=== PATIENT | male | born 1975 | race Caucasian/White ===

== ENCOUNTER 2018-04-21 09:59 | Inpatient (IN) | payer BC ==
[2018-04-21] MEDS ORDERED: DIPRIVAN 200 MG/20 ML IV ONE (10:53)
[2018-04-21] MEDS ORDERED: Quelicin Fliptop 200 MG/10 ML IV ONE (10:53)
[2018-04-21] MEDS ORDERED: Zofran 4 MG/2 ML VIAL IV ONE (10:53)
[2018-04-21] MEDS ORDERED: Zemuron 100 MG/10 ML IV ONE (10:53)
[2018-04-21] MEDS ORDERED: BRIDION 200MG/2ML IV ONE (10:53)
[2018-04-21] MEDS ORDERED: Dextrose 5% -0.45 NaCl 1000 ML 1,000 ML IV SCH (11:15)
[2018-04-21 11:22] LABS: AMYLASE 71 U/L (30-110); LIPASE 110 U/L (23-300)
[2018-04-21] MEDS ORDERED: Pepcid 20 MG VIAL IV ONE (11:39)
[2018-04-21 13:30] LABS: Appearance CLEAR (CLEAR); Bacteria RARE /HPF (NEGATIVE); Bilirubin NEGATIVE (NEGATIVE); Blood SMALL Ery/ul (0-5); Glucose NEGATIVE (NEGATIVE); Ketones NEGATIVE (NEGATIVE); Leukocyte Esterase NEGATIVE (NEGATIVE); Nitrite NEGATIVE (NEGATIVE); Protein,Urine Dip NEGATIVE (Negative); Specific Gravity 1.019 (1.005-1.025); Urobilinogen NEGATIVE mg/dL (0-1)
[2018-04-21 13:31] LABS: WBC NONE SEEN /HPF (0-5)
[2018-04-21] MEDS ORDERED: Lactated Ringers 1,000 ML IV SCH (13:45)
[2018-04-21] MEDS ORDERED: Lactated Ringers 1,000 ML IV ONE (13:51)
[2018-04-21] MEDS ORDERED: Sensorcaine 0.25% 10 ML ONE (13:51)
[2018-04-21] MEDS ORDERED: MEFOXIN 2 GM PREMIX** 2 GM/50 ML ML IV SCH (14:00)
[2018-04-21] MEDS ORDERED: MORPHINE SULFATE 10 MG/ML IV ONE (14:00)
[2018-04-21] MEDS ORDERED: SUBLIMAZE 250 MCG/5 ML IV ONE (14:00)
[2018-04-21] MEDS ORDERED: Versed 2 MG/2 ML Injection IV ONE (14:00)
[2018-04-21] MEDS ORDERED: Valium 5 MG PO ONE (15:01)
--- NOTE | 2018-04-21 15:57 | PCM.SSS ---
History of Present Illness - Chief Complaint Chief Complaint: Appendicitis History of Present Illness: is a 42 year old male pt of Dr. Monae with anxiety and HTN who was admitted today with appendicitis. He had been to see Dr. Monae on Apr 15 c/o having had vomiting, diarrhea, and RLQ pain about a week and a half prior to that. He had some lingering RLQ pain so Dr. Monae ordered labs and a CT scan of the abdomen/pelvis. The CT scan was not done until today and it was concerning for appendicitis. Dr. Monaco called me, as I was fiction writer for Dr. Monae , and we contacted the pt to come in. Dr. Hernandez is aware and plans to do an appendectomy at about 5 pm. today. The patient last ate at 9:30 a.m. He states he's not having any abdominal pain currently. - Review of Systems Constitutional: Fever (few weeks ago), Chills (few weeks ago) Abdominal/Gastrointestinal: Abdominal Pain (no complaint currently), Vomiting ( few weeks ago, resolved), Diarrhea (few weeks ago, resolved) Psychological: Anxiety, No Depression, No Suicidal Ideations Medications & Allergies Home Medications: Home Medication List Alprazolam 0.5 mg [xanAX 0.5 MG] 0.5 mg PO BIDPRN PRN 04/21/18 [History Confirmed 04/21/18] Lisinopril/Hydrochlorothiazide [Lisinopril-Hctz 20-12.5 mg Tab] 2 tab PO HS [History Confirmed 04/21/18] Allergies/Adverse Reactions: Allergies Allergy/AdvReac Type Severity Reaction Status Date / Time No Known Drug Allergies Allergy Unverified 01/30/15 22:34 - Past Medical History Past Medical History: Yes Neurological History: No Pertinent History ENT History: No Pertinent History Cardiac History: Hypertension Respiratory History: No Pertinent History Endocrine Medical History: No Pertinent History Musculoskelatal History: No Pertinent History GI Medical History: Irritable Bowel History: No Pertinent History Pyscho-Social History: Anxiety, Panic Disorder Male Reproductive Disorders: No Pertinent History - Past Surgical History Past Surgical History: Yes Neuro Surgical History: No Pertinent History Cardiac History: No Pertinent History Respiratory Surgery: No Pertinent History GI Surgical History: No Pertinent History Genitourinary Surgical Hx: No Pertinent History Musculskeletal Surgical Hx: No Pertinent History Male Surgical History: No Pertinent History Other Surgical History: tonsillectomy - Social History Smoking Status: Never smoker Exposure to second hand smoke: No Alcohol: Rarely Drug Use: none - Physical Exam Vital Signs: Vital Signs - 24 hr Temp Pulse Resp BP Pulse Ox 04/21/18 13:38 98.5 F 111 H 16 134/79 97 04/21/18 12:14 98.5 F 111 H 16 134/79 97 General Appearance: no apparent distress, alert Neurologic Exam: oriented x 3, cooperative Eye Exam: eyes nml inspection Ears, Nose, Throat Exam: moist mucous membranes Neck Exam: normal inspection, non-tender, supple, No lymphadenopathy Respiratory Exam: normal breath sounds, lungs clear, No crackles/rales, No rhonchi, No wheezing Cardiovascular Exam: regular rate/rhythm, normal heart sounds, No murmur Gastrointestinal/Abdomen Exam: soft, normal bowel sounds, tenderness (RLQ), No distention, No mass, No guarding, No rebound Extremity Exam: normal inspection, No pedal edema, No swelling Skin Exam: normal color, warm, dry, No rash Results - Labs Lab/Micro Results: Lab Results-Last 24 Hours 04/21/18 04/21/18 Range/Units 07:55 13:00 Amylase 71 (30-110) U/L Lipase 110 (23-300) U/L Urine Color STRAW (YELLOW) Urine Appearance CLEAR (CLEAR) Urine pH 7.0 (5-6) Ur Specific [place] 1.019 (1.005-1.025) Urine Protein NEGATIVE (Negative) Urine Ketones NEGATIVE (NEGATIVE) Urine Blood SMALL (0-5) Felix/ul Urine Nitrite NEGATIVE (NEGATIVE) Urine Bilirubin NEGATIVE (NEGATIVE) Urine Urobilinogen NEGATIVE (0-1) mg/dL Ur Leukocyte Esterase NEGATIVE (NEGATIVE) Urine WBC (Auto) NONE SEEN (0-5) /HPF Urine RBC (Auto) 6-10 (0-2) /HPF U Epithel Cells (Auto) NONE (FEW) /HPF Urine Bacteria (Auto) RARE (NEGATIVE) /HPF Urine Culture Reflexed NO (NO) Urine Glucose NEGATIVE (NEGATIVE) mg/dL Assessment/Plan (1) Acute appendicitis Current Visit: No Status: Acute Qualifiers: Acute appendicitis type: unspecified acute appendicitis type Qualified Code (s): K35.80 - Unspecified acute appendicitis Assessment & Plan: WBC actually normal at this point, but CT scan is concerning and he is tender on exam. Dr. Hernandez consulted, thank you . Code(s): K35.80 - UNSPECIFIED ACUTE APPENDICITIS Hospital Summary - Hospital Course Hospital Course: Pt admitted for acute appendicitis - although he is not currently having abdominal pain, his CT abd/pelvis is concerning for appendicitis and his RLQ is tender to palpation. I anticipate that Dr. Hernandez will remove the appendix and release the pt to home when he is stable. - Vitals & Intake/Output Vital Signs: Vital Signs Temperature 98.5 F 04/21/18 13:38 Pulse Rate 111 H 04/21/18 13:38 Respiratory Rate 16 04/21/18 13:38 Blood Pressure 134/79 04/21/18 13:38 O2 Sat by Pulse Oximetry 97 04/21/18 13:38 Intake & Output: Intake & Output 04/19/18 04/20/18 04/21/18 04/22/18 11:59 11:59 11:59 11:59 Weight 97.1 kg - Lab Lab Results-Last 24 Hrs: Lab Results-Last 24 Hours 04/21/18 04/21/18 Range/Units 07:55 13:00 Amylase 71 (30-110) U/L Lipase 110 (23-300) U/L Urine Color STRAW (YELLOW) Urine Appearance CLEAR (CLEAR) Urine pH 7.0 (5-6) Ur Specific [place] 1.019 (1.005-1.025) Urine Protein NEGATIVE (Negative) Urine Ketones NEGATIVE (NEGATIVE) Urine Blood SMALL (0-5) Felix/ul Urine Nitrite NEGATIVE (NEGATIVE) Urine Bilirubin NEGATIVE (NEGATIVE) Urine Urobilinogen NEGATIVE (0-1) mg/dL Ur Leukocyte Esterase NEGATIVE (NEGATIVE) Urine WBC (Auto) NONE SEEN (0-5) /HPF Urine RBC (Auto) 6-10 (0-2) /HPF U Epithel Cells (Auto) NONE (FEW) /HPF Urine Bacteria (Auto) RARE (NEGATIVE) /HPF Urine Culture Reflexed NO (NO) Urine Glucose NEGATIVE (NEGATIVE) mg/dL - Discharge Disposition: Home, Self-Care Condition: Stable Prescriptions: No Action Lisinopril/Hydrochlorothiazide [Lisinopril-Hctz 20-12.5 mg Tab] 2 tab PO HS Alprazolam 0.5 mg [xanAX 0.5 MG] 0.5 mg PO BIDPRN PRN PRN Reason: Anxiety Follow up with: JOE MONAE MD [Primary Care Provider] - 1 Week
[2018-04-21] MEDS ORDERED: SUBLIMAZE 100 MCG/2 ML ONE (20:53)
[2018-04-21] MEDS ORDERED: Zofran 4 MG/2 ML VIAL ONE (21:04)
[2018-04-21] MEDS ORDERED: Zofran 4 MG/2 ML VIAL IV PRN (22:00)
[2018-04-21] MEDS: MORPHINE SULFATE 4 MG INJ IV PRN (22:16)
[2018-04-22] MEDS: Zosyn 3.375GM/100 Ml D5W 3.375 GM/100 ML IVPB IV SCH ×5 (00:22→23:29)
[2018-04-22] MEDS: D5W/0.45NS W/ 20mEq KCl 1000 ML 1,000 ML IV SCH ×3 (00:36→22:32)
[2018-04-22] MEDS ORDERED: TYLENOL 325 MG PO PRN (01:15)
[2018-04-22] MEDS: MORPHINE SULFATE 4 MG INJ IV PRN (03:16)
[2018-04-22 06:17] LABS: Hemoglobin 13.2 gm/dl (12.5-18.0); Mean Cell Volume 86.9 fl (78-100); Mean Corpuscular Hgb Concent. 32.2 g/dl (32-36); Mean Platelet Volume 10.4 fl (6-9.5); Platelet Count 306 K/mm3 (150-450); Red Blood Count 4.72 M/mm3 (4.1-5.6); Red Cell Distribution Width 13.3 % (11.5-14.0); White Blood Count 9.6 K/mm3 (4.0-10.5)
--- NOTE | 2018-04-22 07:54 | CONS ---
CONSULT DATE: 04/21/2018 HISTORY: The patient is a 42 year-old apparently a couple weeks ago had some vomiting, diarrhea, some right lower quadrant pain. Seen by Dr. Gonsalves who ordered a CT scan that was not done until today. He felt that the appendix was abnormal with some periappendiceal stranding. As there was concern for appendicitis and he was admitted and asked for surgical consult. Amylase and lipase were normal. White blood cell count 8.1, hemoglobin 14.3, PLT 338,000. Liver function tests were unremarkable. PAST MEDICAL HISTORY: Anxiety and some hypertension. PAST SURGICAL HISTORY: Tonsillectomy. He denied any prior abdominal surgery. MEDICATIONS: Alprazolam, lisinopril, hydrochlorothiazide. ALLERGIES: NKDA. FAMILY HISTORY: Negative in regards to this problem. No family history of Crohn's disease according to the patient. SOCIAL HISTORY: No smoking. No alcohol abuse. REVIEW OF SYSTEMS: Twelve systems reviewed per admission assessment. No chest pain or palpitations. He wears glasses, has some hypertension has some irritable bowel and some anxiety and panic disorder in the past. Otherwise no chest pain or palpitations. He is not having much pain currently. PHYSICAL EXAMINATION: Temperature 98.5F, blood pressure 134/79. GENERAL: No acute distress. HEENT: Sclera nonicteric. NECK: No JVD. CHEST: Equal excursion, nonlabored breathing. CVS: Regular rate and rhythm. ABDOMEN: Soft, minimal tenderness right lower quadrant. No rebound currently. No peritoneal signs. EXTREMITIES: No significant edema. NEURO: Alert, moving extremities symmetrically. No gross motor deficits noted. IMPRESSION: History of some abdominal pain, history of abnormal distended appendix on CT scan with some periappendiceal stranding, question whether he had some subacute appendicitis. I feel he warrants diagnostic laparoscopy, laparoscopic appendectomy possible open. Risks and benefits explained in detail including but not limited to bleeding or infection, risk of trocar injury or hernia, small risk of bowel, bladder or blood vessel injury, small risk of subsequent issue of abdominal abscess or fistula formation possibly requiring percutaneous or open drainage even at a later date, possible need for open procedure, general risk of anesthesia, deep venous thrombosis, pulmonary embolism, pneumonia, perioperative risk of aches, pains, obstruction and/or ileus, nausea and vomiting but not limited to. He also understands the possibility of finding a normal appendix, look for other etiology that might have caused his symptoms that might need dealt with surgically but likely remove appendix incidentally. He understands and is agreeable to proceed with diagnostic laparoscopy, laparoscopic appendectomy possible open when OR time available.
--- NOTE | 2018-04-22 08:25 | OP ---
SURGERY DATE/TIME: 04/21/20181909 PREOPERATIVE DIAGNOSIS: Acute appendicitis by CT scan. POSTOPERATIVE DIAGNOSIS: Subacute perforated appendicitis with phlegmon and inflammation eroding on small bowel serosal area. PROCEDURE: Diagnostic laparoscopy, laparoscopic appendectomy. SURGEON: Dr. Kolby Florian. ANESTHESIA: General. ESTIMATED BLOOD LOSS: Minimal. INDICATIONS: As noted above. Risks and benefits explained in detail but not limited to, consent obtained. DESCRIPTION OF PROCEDURE AND FINDINGS: The patient was taken to the operating room. General anesthesia was induced. Abdomen prepped and draped in usual sterile fashion. After official time out and no disagreement with the procedure, a transverse incision made at supraumbilical area. Fascia grasped and pulled upwards. Veress needle inserted and tested with saline. Pneumoperitoneum accomplished insufflating from opening pressure of 0 to 15. A 5 mm bladeless port and camera were inserted without difficulty followed by a lower midline 5 mm port and a 12 mm right mid abdomen port. He had small bowel adhesions up to the right lower quadrant. These were taken down carefully sharply with laparoscopic reuben without any need of energy use. The appendix itself was concreted and phlegmon in the right lower quadrant. The tip was fused to two separate small bowel loops and quite extensive inflammation of the serosa. There did not seem to be a full thickness fistulization at this juncture. These two loops of small bowel were carefully taken off the appendix. The appendix was freed at the base of the cecum. EndoGIA stapler fired at the base of the cecum at the appendiceal stump. The mesentery was taken down with stapler as well with raya reload. There was some pulsatile ooze at the staple line that was controlled a clip or two and pin point cauterization with brief bursts of cautery. It was difficult to tell whether the fat pad off the terminal ileum was inflamed at the perforation site or whether a small piece of the appendiceal tip in this area had perforated. Therefore this was just stapled off the edge of the small bowel. There were a couple of areas of extensive inflammation of the small bowel. There did not appear to be any obvious full thickness fistulization at this point. Therefore it was felt that it did not warrant laparotomy or ileocecal resection at this junction. Copious amount of irrigation irrigating until clear. Appendix placed in [place] sac pulled free and passed off. Good hemostasis noted. At this point CARTER drain left in the right lower quadrant out the inferior 5 mm port site and placed to bulb suction secured with PDS suture. The omentum was laid over the top of this raw area of the small bowel. Again, there did not appear to be any obvious full thickness fistulization at this junction. There was a small possibility of that developing down the road. Therefore the omentum was laid over the top of this omental patch. CARTER is in good position. The 12 mm fascia defect closed with puncture closure device with #1 Vicryl. Pneumoperitoneum decompressed. The wound is irrigated out. It should be noted that a suture had been placed with puncture closure device the suture apparently had broke. Therefore it was necessary to place an additional 0 Vicryl external in figure-o-8 fashion. Copious amount of irrigation irrigating until clear. Wound irrigated out. The skin incision closed with 4-0 Vicryl with 0.25 inch Iodoform left where the appendix had been taken out to be gradually pulled out over the next few days. The patient tolerated the procedure well. There were no immediate complications. Findings discussed with the family out in the waiting area. They understood with the extensive inflammatory reaction likely he had acute appendicitis a couple of weeks ago and had perforation with inflammation here. Overall there is no direct evidence that there is any fistulization with the bowel. There was a small possibility that any bowel leak might require either prolonged bowel rest or consideration of ileocecal resection even at a later date. They understood this. In the meantime will keep him on IV antibiotics overnight and recheck his white count tomorrow. I will be tied up in [place] and likely one of my partners will check on him tomorrow as they are working down this way.
--- NOTE | 2018-04-22 08:42 | PCM.NOTE ---
Date and Time: 04/22/18 0840 Subjective Assessment: patient tolerating clears, had Jello-O this am, sitting up in chair. has pain but is reasonably well controlled. Objective Exam General Appearance: no apparent distress, alert Respiratory Exam: normal breath sounds, lungs clear, No respiratory distress Cardiovascular Exam: regular rate/rhythm, normal heart sounds Gastrointestinal/Abdomen Exam: soft, other (dressings c/d/i, CARTER with serosang. fluid present), No tenderness, No mass Extremity Exam: normal inspection, normal range of motion OBJECTIVE DATA Vital Signs: Vital Signs - 24 hr Temp Pulse Resp BP Pulse Ox 04/22/18 07:31 98 F 68 18 120/68 96 04/22/18 04:25 98.4 F 67 18 117/67 95 04/22/18 03:00 68 15 94 L 04/22/18 00:45 98.6 F 72 14 93/56 95 04/21/18 23:45 68 16 97/60 95 04/21/18 22:45 98.2 F 76 16 104/65 94 L 04/21/18 22:15 98.0 F 71 16 117/73 95 04/21/18 21:45 97.7 F 85 16 134/76 95 04/21/18 21:25 97.6 F 80 16 104/66 95 04/21/18 16:00 98.5 F 76 16 111/56 95 04/21/18 13:38 98.5 F 76 16 111/56 95 04/21/18 12:14 98.5 F 111 H 16 134/79 97 Pain Assessment - Last Documented Pain Intensity 7 Pain Scale Used [facility] Intake and Output: Intake & Output 04/19/18 04/20/18 04/21/18 04/22/18 11:59 11:59 11:59 11:59 Intake Total 677 Output Total 375 Balance 302 Weight 97.1 kg Lab Results: Lab Results-Last 24 Hours 04/21/18 04/21/18 04/22/18 Range/Units 07:55 13:00 05:45 WBC 9.6 (4.0-10.5) K/mm3 RBC 4.72 (4.1-5.6) M/mm3 Hgb 13.2 (12.5-18.0) gm/dl Hct 41.0 L (42-50) % MCV 86.9 (78-100) fl MCH 28.0 (26-32) pg MCHC 32.2 (32-36) g/dl RDW 13.3 (11.5-14.0) % Plt Count 306 (150-450) K/mm3 MPV 10.4 H (6-9.5) fl Amylase 71 (30-110) U/L Lipase 110 (23-300) U/L Urine Color STRAW (YELLOW) Urine Appearance CLEAR (CLEAR) Urine pH 7.0 (5-6) Ur Specific [place] 1.019 (1.005-1.025) Urine Protein NEGATIVE (Negative) Urine Ketones NEGATIVE (NEGATIVE) Urine Blood SMALL (0-5) Felix/ul Urine Nitrite NEGATIVE (NEGATIVE) Urine Bilirubin NEGATIVE (NEGATIVE) Urine Urobilinogen NEGATIVE (0-1) mg/dL Ur Leukocyte Esterase NEGATIVE (NEGATIVE) Urine WBC (Auto) NONE SEEN (0-5) /HPF Urine RBC (Auto) 6-10 (0-2) /HPF U Epithel Cells (Auto) NONE (FEW) /HPF Urine Bacteria (Auto) RARE (NEGATIVE) /HPF Urine Culture Reflexed NO (NO) Urine Glucose NEGATIVE (NEGATIVE) mg/dL Assessment/Plan (1) Perforated appendicitis Current Visit: Yes Status: Acute Assessment & Plan: wbc normal this am, continue zosyn. will start lovenox today at noon as per surgery. encourage ambulation Code(s): K35.32 - ACUTE APPENDICITIS WITH PERF AND LOC PERITONITIS, W/O ABSCS
[2018-04-22] MEDS: NORCO 5/325 MG PO PRN ×4 (09:17→23:48)
[2018-04-22] MEDS ORDERED: xanAX 0.5 MG PO PRN (11:11)
[2018-04-22] MEDS: ENOXAPARIN SODIUM SQ SCH (11:27)
[2018-04-23] MEDS: NORCO 5/325 MG PO PRN ×4 (03:40→23:29)
[2018-04-23] MEDS: Zosyn 3.375GM/100 Ml D5W 3.375 GM/100 ML IVPB IV SCH ×4 (05:11→23:30)
[2018-04-23 05:36] LABS: BASOPHIL % 0.5 % (0.0-0.4); Basophil (Absolute #) 0.04 (0-0.4); Eosinophil % 2.2 % (0.00-5.0); Eosinophil (Absolute #) 0.19 (0-0.5); Granulocyte Absolute (ANC) 5.72 (1.4-6.9); Granulocytes % 67.4 % (36.0-66.0); Hematocrit 40.9 % (42-50); Hemoglobin 13.1 gm/dl (12.5-18.0); Lymphocyte (Absolute #) 1.54 (1.0-4.6); Lymphocytes % 18.1 % (24.0-44.0); Mean Cell Volume 87.8 fl (78-100); Mean Corpuscular Hemoglobin 28.1 pg (26-32); Mean Platelet Volume 10.4 fl (6-9.5); Monocytes % 11.8 % (0.0-12.0); Platelet Count 275 K/mm3 (150-450); Red Blood Count 4.66 M/mm3 (4.1-5.6); Red Cell Distribution Width 13.4 % (11.5-14.0); White Blood Count 8.5 K/mm3 (4.0-10.5)
[2018-04-23 06:25] LABS: ALBUMIN 3.7 g/dL (3.5-5.0); ALKALINE PHOSPHATASE 67 U/L (38-126); BLOOD UREA NITROGEN 8 mg/dL (9-20); CHLORIDE 102 mmol/L (98-107); Calcium 8.8 mg/dL (8.4-10.2); Carbon Dioxide 31 mmol/L (22-30); Creatinine 1 1.05 mg/dL (0.66-1.25); Glucose 96 mg/dL (74-106); Potassium 4.5 mmol/L (3.5-5.1); SGOT/AST 23 U/L (17-59); SGPT/ALT 31 U/L (0-50); SODIUM 139 mmol/L (137-145); Total Protein 6.4 g/dL (6.3-8.2)
--- NOTE | 2018-04-23 08:19 | PCM.NOTE ---
Date and Time: 04/23/1814 Subjective Assessment: no flatus yet, was nauseated with dinner last night but no vomiting overnight. pain is controlled, he is ambulating Objective Exam General Appearance: no apparent distress, alert Neurologic Exam: alert, oriented x 3 Skin Exam: normal color, warm, dry Respiratory Exam: normal breath sounds, lungs clear, No respiratory distress Cardiovascular Exam: regular rate/rhythm, normal heart sounds Gastrointestinal/Abdomen Exam: soft, other (bowel sounds present), No tenderness , No mass Extremity Exam: normal inspection, normal range of motion OBJECTIVE DATA Vital Signs: Vital Signs - 24 hr Temp Pulse Resp BP Pulse Ox 04/23/18 08:00 98.4 F 74 16 106/64 98 04/23/18 04:06 98.2 F 76 18 114/67 95 04/23/18 00:02 98.3 F 76 16 118/58 96 04/22/18 20:14 98.2 F 91 H 16 120/73 95 04/22/18 16:32 98.2 F 83 20 127/68 97 04/22/18 16:00 18 04/22/18 12:00 20 04/22/18 11:18 98.2 F 64 20 102/59 96 Pain Assessment - Last Documented Pain Intensity 6 Pain Scale Used 0-10 Pain Scale Intake and Output: Intake & Output 04/20/18 04/21/18 04/22/18 04/23/18 11:59 11:59 11:59 11:59 Intake Total 917 3772 Output Total 975 2420 Balance -58 1352 Weight 97.1 kg Lab Results: Lab Results-Last 24 Hours 04/23/18 04/23/18 Range/Units 05:13 05:13 WBC 8.5 (4.0-10.5) K/mm3 RBC 4.66 (4.1-5.6) M/mm3 Hgb 13.1 (12.5-18.0) gm/dl Hct 40.9 L (42-50) % MCV 87.8 (78-100) fl MCH 28.1 (26-32) pg MCHC 32.0 (32-36) g/dl RDW 13.4 (11.5-14.0) % Plt Count 275 (150-450) K/mm3 MPV 10.4 H (6-9.5) fl Gran % 67.4 H (36.0-66.0) % Eos # (Auto) 0.19 (0-0.5) Absolute Lymphs (auto) 1.54 (1.0-4.6) Absolute Monos (auto) 1.00 (0.0-1.3) Lymphocytes % 18.1 L (24.0-44.0) % Monocytes % 11.8 (0.0-12.0) % Eosinophils % 2.2 (0.00-5.0) % Basophils % 0.5 (0.0-0.4) % Absolute Granulocytes 5.72 (1.4-6.9) Basophils # 0.04 (0-0.4) Sodium 139 (137-145) mmol/L Potassium 4.5 (3.5-5.1) mmol/L Chloride 102 (98-107) mmol/L Carbon Dioxide 31 H (22-30) mmol/L Anion Gap 10.0 (5-15) MEQ/L BUN 8 L (9-20) mg/dL Creatinine 1.05 (0.66-1.25) mg/dL Estimated GFR > 60.0 ML/MIN Glucose 96 (74-106) mg/dL Calcium 8.8 (8.4-10.2) mg/dL Total Bilirubin 0.90 (0.2-1.3) mg/dL AST 23 (17-59) U/L ALT 31 (0-50) U/L Alkaline Phosphatase 67 (38-126) U/L Serum Total Protein 6.4 (6.3-8.2) g/dL Albumin 3.7 (3.5-5.0) g/dL Multi-Disciplinary Progress Notes: Multi-Disciplinary Progress Notes 04/22/18 13:04 Respiratory Note by Georgie Camarillo PT DOING INCENTIVE SELF CARE Initialized on 04/22/18 13:04 - END OF NOTE Assessment/Plan (1) Perforated appendicitis Current Visit: Yes Status: Acute Assessment & Plan: continue zosyn, IV fluids. labs look good today, lovenox was started yesterday. advance diet as per surgery Code(s): K35.32 - ACUTE APPENDICITIS WITH PERF AND LOC PERITONITIS, W/O ABSCS
[2018-04-23] MEDS: D5W/0.45NS W/ 20mEq KCl 1000 ML 1,000 ML IV SCH ×2 (09:55→20:36)
[2018-04-23] MEDS: ENOXAPARIN SODIUM SQ SCH (12:36)
[2018-04-24] MEDS: Zosyn 3.375GM/100 Ml D5W 3.375 GM/100 ML IVPB IV SCH ×4 (05:10→23:45)
[2018-04-24 05:34] LABS: Hematocrit 40.3 % (42-50); Mean Cell Volume 87.2 fl (78-100); Mean Corpuscular Hemoglobin 28.1 pg (26-32); Mean Corpuscular Hgb Concent. 32.3 g/dl (32-36); Mean Platelet Volume 10.1 fl (6-9.5); Platelet Count 257 K/mm3 (150-450); Red Blood Count 4.62 M/mm3 (4.1-5.6); Red Cell Distribution Width 13.3 % (11.5-14.0)
[2018-04-24 05:59] LABS: ALBUMIN 3.8 g/dL (3.5-5.0); ALKALINE PHOSPHATASE 78 U/L (38-126); ANION GAP 11.5 MEQ/L (5-15); BLOOD UREA NITROGEN 6 mg/dL (9-20); CHLORIDE 102 mmol/L (98-107); Calcium 8.9 mg/dL (8.4-10.2); Carbon Dioxide 30 mmol/L (22-30); Creatinine 1 1.03 mg/dL (0.66-1.25); Glucose 94 mg/dL (74-106); Potassium 4.1 mmol/L (3.5-5.1); SGOT/AST 40 U/L (17-59); SGPT/ALT 46 U/L (0-50); SODIUM 139 mmol/L (137-145); Total Protein 6.7 g/dL (6.3-8.2)
[2018-04-24] MEDS: NORCO 5/325 MG PO PRN ×3 (06:56→16:25)
[2018-04-24] MEDS: D5W/0.45NS W/ 20mEq KCl 1000 ML 1,000 ML IV SCH ×2 (07:00→18:44)
[2018-04-24 07:15] LABS: BAND 2 % (0.0-2.0); Eosinophil 2 % (0.00-3.0); Lymphocytes 26 % (24-44); Monocyte 9 % (0.0-12.0); Neutrophils 61 % (36.-66.); Total Cells Counted 100
[2018-04-24 07:16] LABS: Platelet Estimate NORMAL (NORMAL)
[2018-04-24 07:17] LABS: Granulocyte Absolute (ANC) 4.41 (1.4-6.9)
--- NOTE | 2018-04-24 08:18 | PCM.NOTE ---
Date and Time: 04/24/18816 Subjective Assessment: patient is tolerating clear liquids, passing flatus. pain is controlled, no problems or concerns at this time. Objective Exam General Appearance: no apparent distress, alert Respiratory Exam: normal breath sounds, lungs clear, No respiratory distress Cardiovascular Exam: regular rate/rhythm, normal heart sounds Gastrointestinal/Abdomen Exam: soft, normal bowel sounds, other (minimal ss fluid in CARTER drain) Extremity Exam: normal inspection, normal range of motion OBJECTIVE DATA Vital Signs: Vital Signs - 24 hr Temp Pulse Resp BP BP Pulse Ox 04/24/18 07:44 98.8 F 73 16 118/78 94 L 04/24/18 03:35 98.4 F 73 20 113/74 97 04/23/18 23:38 98.9 F 79 18 127/80 96 04/23/18 19:20 98.7 F 76 16 113/75 96 04/23/18 16:25 98.3 F 73 20 134/65 98 04/23/18 16:00 20 04/23/18 12:00 98.8 F 76 18 120/68 94 L Pain Assessment - Last Documented Pain Intensity 7 Pain Scale Used 0-10 Pain Scale Intake and Output: Intake & Output 04/21/18 04/22/18 04/23/18 04/24/18 11:59 11:59 11:59 11:59 Intake Total 917 3792 3583 Output Total 975 2420 1100 Balance -58 1372 2483 Weight 97.1 kg Lab Results: Lab Results-Last 24 Hours 04/24/18 04/24/18 Range/Units 05:26 05:26 WBC 7.0 (4.0-10.5) K/mm3 RBC 4.62 (4.1-5.6) M/mm3 Hgb 13.0 (12.5-18.0) gm/dl Hct 40.3 L (42-50) % MCV 87.2 (78-100) fl MCH 28.1 (26-32) pg MCHC 32.3 (32-36) g/dl RDW 13.3 (11.5-14.0) % Plt Count 257 (150-450) K/mm3 MPV 10.1 H (6-9.5) fl Absolute Granulocytes 4.41 (1.4-6.9) Segmented Neutrophils 61 (36.-66.) % Band Neutrophils 2 (0.0-2.0) % Lymphocytes (Manual) 26 (24-44) % Monocytes (Manual) 9 (0.0-12.0) % Eosinophils (Manual) 2 (0.00-3.0) % Platelet Estimate NORMAL (NORMAL) RBC Morphology NORMAL Sodium 139 (137-145) mmol/L Potassium 4.1 (3.5-5.1) mmol/L Chloride 102 (98-107) mmol/L Carbon Dioxide 30 (22-30) mmol/L Anion Gap 11.5 (5-15) MEQ/L BUN 6 L (9-20) mg/dL Creatinine 1.03 (0.66-1.25) mg/dL Estimated GFR > 60.0 ML/MIN Glucose 94 (74-106) mg/dL Calcium 8.9 (8.4-10.2) mg/dL Total Bilirubin 1.00 (0.2-1.3) mg/dL AST 40 (17-59) U/L ALT 46 (0-50) U/L Alkaline Phosphatase 78 (38-126) U/L Serum Total Protein 6.7 (6.3-8.2) g/dL Albumin 3.8 (3.5-5.0) g/dL Assessment/Plan (1) Perforated appendicitis Current Visit: Yes Status: Acute Assessment & Plan: on zosyn, POD #3. surgery likely to advance diet today based on exam. overall doing quite well, wbc normal and afebrile. bp meds have been on hold since surgery and patient has been normotensive Code(s): K35.32 - ACUTE APPENDICITIS WITH PERF AND LOC PERITONITIS, W/O ABSCS
[2018-04-24] MEDS: ENOXAPARIN SODIUM SQ SCH (11:30)
[2018-04-24 20:58] VITALS: O2SAT 96
[2018-04-25] MEDS: Zosyn 3.375GM/100 Ml D5W 3.375 GM/100 ML IVPB IV SCH (05:27)
[2018-04-25] MEDS: D5W/0.45NS W/ 20mEq KCl 1000 ML 1,000 ML IV SCH (05:27)
[2018-04-25 07:02] VITALS: BP 119/73; PULSE 70
--- NOTE | 2018-04-25 10:16 | PCM.DCORD ---
- Discharge Discharge Date: 04/25/18 Condition: Good Prescriptions: New Amox Tr/Potass Clav. 875 mg [Augmentin 875-125 Tablet] 875 mg PO BID # 14 tablet Hydrocodone/APAP 5-325 Tab^^^ [[place] 5-325 Tablet^^^] 1 tab PO Q4HPRN PRN # 24 tablet MDD 6 PRN Reason: Pain Continue Lisinopril/Hydrochlorothiazide [Lisinopril-Hctz 20-12.5 mg Tab] 2 tab PO HS Alprazolam 0.5 mg [xanAX 0.5 MG] 0.5 mg PO BIDPRN PRN PRN Reason: Anxiety Follow up with: JOE MONAE MD [Primary Care Provider] - 1 Week ENID ARROYO [ACTIVE STAFF] - 04/30/18 1:10 pm ([facility] in [facility])
--- NOTE | 2018-04-27 15:05 | DS ---
DISCHARGE DIAGNOSES: 1) RUPTURED APPENDICITIS. 2) PERITONITIS. HOSPITAL COURSE: The patient is a 42 year-old white male patient who presented with abdominal pain, nausea and vomiting and some diarrhea. CT scan showed that there was an abnormality in the appendix. The patient had surgery by Dr. Florian and a phlegmon was found and it was drained. The patient has been on IV antibiotics and doing much better. He was able to eat and was looking good and ready for discharge home by the morning of 04/25/2018. He was discharged home on Augmentin 875 mg twice a day and [place] for pain. He will have follow up with surgeon's office in a week. He is to return to the hospital if he has any further problems in the interim.
== END 2018-04-25 11:05 | disposition home or self-care (01) | DRG 340 ==
LOC: MED SURG 10:52 → OBSVTOIN 04-22 17:15
PROVIDERS: ADMIT Family Medicine; ATTEND Family Medicine
PROC: 0DTJ4ZZ Resection of Appendix, Percutaneous Endoscopic Approach (ICD-10-PCS; principal; 2018-04-22)
DX: K35.33 Acute appendicitis with perforation, localized peritonitis, and gangrene, with abscess (principal); I10 Essential (primary) hypertension; F41.9 Anxiety disorder, unspecified; Z79.899 Other long term (current) drug therapy
CPT/HCPCS: 36415; 74177; 80053; 81001; 82150; 83690; 85025; 85027; 88304; 94760; G0378; J0330; J1650; J2250; J2270; J2405; J2543; J2704; J3010; A9270-GY